=== PATIENT | male | born 1990 | race Caucasian/White ===

== ENCOUNTER 2018-02-18 20:55 | Inpatient (IN) ==
[2018-02-21] MEDS ORDERED: Divalproex 500 MG DR Tablet PO ONE (08:38)
[2018-02-21] MEDS ORDERED: Acetaminophen 325 MG Tablet PO PRN (09:09)
[2018-02-21] MEDS ORDERED: Aluminum/Magnesium/Simethacone Susp 30 ML UDC PO PRN (09:10)
[2018-02-21] MEDS ORDERED: LORazepam 1 MG Tablet PO PRN (09:15)
--- NOTE | 2018-02-21 15:21 | P.PNPSY ---
Subjective Remarks: Patient was seen and case discussed with nursing. Patient remains very irritable. "I feel manic." Patient says he has been having perseverant suicidal ideation. He had a plan with possible intent of hanging himself in the bathroom using a sheet. Nursing was made aware and a verbal order was given for 1-1 immediately. Mental Status Examination Appearance: Appropriate Consciousness: Alert Orientation: x4 Motor Activity: Normal gait Speech: Pressured Language: Adequate Fund of Knowledge: Adequate Attention and Concentration: Adequate Memory: Unremarkable Mood: Irritable Affect: Irritable, Sad Thought Process & Associations: Intact Thought Content: Appropriate Hallucination Type: None Delusion Type: None Suicidal Ideation: Yes Suicidal Plan: Yes (To hang himself) Suicidal Intention: Yes Homicidal Ideation: No Homicidal Plan: No Homicidal Intention: No Insight: Poor Judgment: Poor Assessment and Plan - Assessment (1) Bipolar disorder, current episode depressed, severe, without psychotic features Code(s): F31.4 - Bipolar disorder, current episode depressed, severe, without psychotic features Status: Acute - Plan Plan: Estimated LOS: [] days Order one-to-one Justification for Continued Inpatient Stay: Patient would decompensate in a less restrictive setting
[2018-02-21] MEDS: Divalproex 500 MG DR Tablet PO SCH (22:43)
[2018-02-22] MEDS: Divalproex 500 MG DR Tablet PO SCH ×2 (08:36→21:03)
--- NOTE | 2018-02-22 12:45 | P.PNPSY ---
Subjective Remarks: Patient seen and examined with nurse in coverage for Dr. Gandhi. Chart reviewed. Case discussed with nursing staff. Per nursing, patient was threatening to kill himself in the bathroom and so was placed on a one-to-one by Dr. Garland yesterday. Nursing staff has noted prominent antisocial personality traits. On my examination today, the patient reports that he has a history of bipolar disorder or perhaps borderline personality disorder. He says that he has pursued brief courses of inpatient treatment primarily in the past but has been poorly adherent with treatment recommendations after discharge. He says that he presented to outside hospital with psychiatric complaints but they rebuffed him and "I had to do this [i.e. overdose on Depakote] because they did not believe me." He further says that they "forced me to chew pills." I perceive prominent mixed cluster B (chiefly antisocial) personality traits. Some staff splitting noted. Patient complains of anxiety and racing thoughts. He denies any desire to injure himself on the inpatient unit at this time although he does endorse some ongoing vague suicidal ideation. He is requesting an as needed anxiolytic as well as additional medication for mood stabilization. No side effects from current medicines. No physical complaints. Review of Systems All other systems reviewed negative except as stated in HPI Mental Status Examination Appearance: Appropriate Consciousness: Alert Orientation: x4 Motor Activity: Other (No motor abnormalities noted. No ictal activity noted.) Speech: Unremarkable Language: Adequate Fund of Knowledge: Adequate Attention and Concentration: Adequate Memory: Unremarkable Mood: Anxious, Irritable Affect: Anxious Thought Process & Associations: Intact, Logical, Linear Thought Content: Appropriate Hallucination Type: None Delusion Type: None Suicidal Ideation: Yes Suicidal Plan: No Suicidal Intention: No Homicidal Ideation: No Homicidal Plan: No Homicidal Intention: No Insight: Fair Judgment: Impulsive Assessment and Plan - Assessment (1) Adjustment disorder with mixed disturbance of emotions and conduct Code(s): F43.25 - Adjustment disorder with mixed disturbance of emotions and conduct Status: Acute - Plan Plan: Extensive discussion with patient regarding pharmacotherapeutic options for current psychiatric complaints. We settle on addition of Zyprexa at bedtime. R /B/A for this medication discussed with patient. I have also highlighted that this medication can lower the seizure threshold. Add Zyprexa 5mg qHS. Check EKG for QTC [Update: QTc wnl]. Continue Depakote as ordered. Hospitalist input noted and appreciated. Continue one-to-one observation for now. Continue other medications and care as ordered. Justification for Continued Inpatient Stay: Medication changes. Risk for decompensation in less restrictive environment. Monitoring for impairment in safety. Discharge Planning: Pending psychiatric stabilization
[2018-02-23] MEDS: Divalproex 500 MG DR Tablet PO SCH ×2 (08:09→21:19)
--- NOTE | 2018-02-23 10:46 | ECG ---
Date Performed: 02/22/2018 Time Performed: 13:25:57 PTAGE: 28 years EKG: Sinus rhythm WITH SINUS ARRHYTHMIA NORMAL ECG NO PREVIOUS TRACING DOCTOR: Valentin Bautista Interpretating Date/Time 02/23/2018 10:44:42
--- NOTE | 2018-02-23 14:49 | P.PNPSY ---
Subjective Remarks: Patient seen and examined in coverage for Dr. Gadnhi. Chart reviewed. Case discussed with nursing staff. No behavioral issues noted overnight. Case discussed in treatment team. On my examination today, the patient continues to exhibit cluster B personality traits. He does admit that he is feeling less irritable, albeit a little tired from the addition of Zyprexa. Somewhat faultfinding. He feels like he needs to be placed in an assisted living facility so that his medication administration can be supervised as he notes this has been an issue for him in the past. Although he denies any active suicidal ideation, he continues to say "if I , it is okay." Besides some tiredness, no side effects from medications. No physical complaints. Refused vital signs this morning Labs reviewed. No new labs. Review of Systems All other systems reviewed negative except as stated in HPI Mental Status Examination Appearance: Appropriate Consciousness: Alert Orientation: x4 Motor Activity: Other (No abnormal motor movements noted. No ictal activity noted.) Speech: Unremarkable Language: Adequate Fund of Knowledge: Adequate Attention and Concentration: Adequate Memory: Unremarkable Mood: Other (Calmer, less irritable) Affect: Blunt Thought Process & Associations: Intact, Logical, Linear Thought Content: Appropriate Hallucination Type: None Delusion Type: None Suicidal Ideation: No Suicidal Plan: No Suicidal Intention: No Homicidal Ideation: No Homicidal Plan: No Homicidal Intention: No Insight: Fair Judgment: Impulsive Assessment and Plan - Assessment (1) Adjustment disorder with mixed disturbance of emotions and conduct Code(s): F43.25 - Adjustment disorder with mixed disturbance of emotions and conduct Status: Acute - Plan Plan: Continue Zyprexa as ordered. To consider further titrating the dose once patient acclimatizes to current dose. Continue one-to-one for safety overnight , although we might consider discontinuing this tomorrow. I have consulted the wedding planner regarding possible [facility] placement. Continue other medications and care as ordered. Justification for Continued Inpatient Stay: Monitoring for impairment in safety Discharge Planning: Possible placement
[2018-02-24] MEDS: Divalproex 500 MG DR Tablet PO SCH ×2 (09:32→20:14)
--- NOTE | 2018-02-24 12:48 | P.PNPSY ---
Subjective Remarks: Patient seen and mcleod with nurse Alyse, chart reviewed, patient compliant medications. Patient much calmer today states now that he is on medication he is feeling better. He acknowledges chronic suicidal ideation though he denies intent or plan or attempts. He acknowledges a difficult time showing cooperation and compliance. Would like to find a placement perhaps an [facility] where there would be some assistance. At this time I feel patient has improved to the point we can discontinue the one-to-one observation status and place him on close observation for any privileges. We will also attempt to transfer him to [facility] she may get more counseling and treatment Review of Systems All other systems reviewed negative except as stated in HPI Mental Status Examination Appearance: Appropriate Consciousness: Alert Orientation: x4 Motor Activity: Normal gait Speech: Unremarkable Language: Adequate Fund of Knowledge: Adequate Attention and Concentration: Adequate Memory: Unremarkable Mood: Other (Calmer less irritable) Affect: Blunt (Slight increased range and intensity) Thought Process & Associations: Intact, Logical Thought Content: Appropriate Hallucination Type: None Delusion Type: None Suicidal Ideation: No Suicidal Plan: No Suicidal Intention: No Homicidal Ideation: No Homicidal Plan: No Homicidal Intention: No Insight: Adequate Judgment: Adequate Assessment and Plan - Assessment (1) Adjustment disorder with mixed disturbance of emotions and conduct Code(s): F43.25 - Adjustment disorder with mixed disturbance of emotions and conduct Status: Acute - Plan Plan: Patient continues depressed and suicidal though improving. We will discontinue the one-to-one observations place him on close observation with privileges, we will also transfer the [facility] placement may become somewhat problematic Justification for Continued Inpatient Stay: At this time patient would decompensate a place to a lower level of care Discharge Planning: To be determined - Attending Attestation I have examined the patient and dictated the above adult
[2018-02-25] MEDS: Divalproex 500 MG DR Tablet PO SCH ×2 (10:16→20:02)
--- NOTE | 2018-02-25 16:01 | P.PNPSY ---
Subjective Remarks: In the mcleod with nurse Favian, patient continues calm cooperative but quite negative and pessimistic about finding an appropriate placement that would fulfill his needs. Though he does have insight into his own behaviors that have been up a component of his prior failures his critical verbalizations and inability to show some common sense in interpersonal relationships. Review of Systems All other systems reviewed negative except as stated in HPI Mental Status Examination Appearance: Appropriate Consciousness: Alert Orientation: x4 Motor Activity: Normal gait Speech: Unremarkable Language: Adequate Fund of Knowledge: Adequate Attention and Concentration: Adequate Memory: Unremarkable Mood: Other (Calmer less irritable) Affect: Blunt (Slight increased range and intensity) Thought Process & Associations: Intact, Logical Thought Content: Appropriate Hallucination Type: None Delusion Type: None Suicidal Ideation: No Suicidal Plan: No Suicidal Intention: No Homicidal Ideation: No Homicidal Plan: No Homicidal Intention: No Insight: Adequate Judgment: Adequate Assessment and Plan - Assessment (1) Adjustment disorder with mixed disturbance of emotions and conduct Code(s): F43.25 - Adjustment disorder with mixed disturbance of emotions and conduct Status: Acute - Plan Plan: Patient continues negative is vague suicidal ideation with no real intent or plan. Continues negative pessimistic about finding appropriate placement and referrals Justification for Continued Inpatient Stay: At this time patient would decompensate if not placed in an appropriate referral Discharge Planning: To be determined
[2018-02-26] MEDS: Divalproex 500 MG DR Tablet PO SCH ×2 (08:47→21:45)
--- NOTE | 2018-02-26 12:43 | P.PNPSY ---
Subjective Remarks: Patient seen and mcleod with floor staff, chart reviewed, patient compliant medications, patient discussed with nurse. It appears patient is adjusting well to the B unit, he is becoming somewhat more social participating in groups. Patient feels also like people here are respecting him in listening to him. He still remains suicidal and depressed though his affect is brightening. For now continue treatment no change continue to work an appropriate placement for this young man Review of Systems All other systems reviewed negative except as stated in HPI Mental Status Examination Appearance: Appropriate Consciousness: Alert Orientation: x4 Motor Activity: Normal gait Speech: Unremarkable Language: Adequate Fund of Knowledge: Adequate Attention and Concentration: Adequate Memory: Unremarkable Mood: Other (More tending towards euthymia still depressed) Affect: Other Thought Process & Associations: Intact, Logical Thought Content: Appropriate Hallucination Type: None Delusion Type: None Suicidal Ideation: No Suicidal Plan: No Suicidal Intention: No Homicidal Ideation: No Homicidal Plan: No Homicidal Intention: No Insight: Adequate Judgment: Adequate Assessment and Plan - Assessment (1) Adjustment disorder with mixed disturbance of emotions and conduct Code(s): F43.25 - Adjustment disorder with mixed disturbance of emotions and conduct Status: Acute - Plan Plan: Patient remains depressed with vague suicidal ideation though there is improvement in his mood and affect. He does have insight into his vulnerabilities if appropriate placements are not found to assist him Justification for Continued Inpatient Stay: At this time patient would decompensate if placed in a lower level of care Discharge Planning: To be determined
[2018-02-27] MEDS: Divalproex 500 MG DR Tablet PO SCH ×2 (08:42→20:25)
--- NOTE | 2018-02-27 15:13 | P.PNPSY ---
Subjective Remarks: Pt seen and discussed with staff. Pt has been compliant with medications and cooperative. No behavioral problems on unit. Continues to endorse vague suicidal ideation. He has been participating in therapeutic activities. Mental Status Examination Appearance: Appropriate Consciousness: Alert Orientation: x4 Motor Activity: Normal gait Speech: Unremarkable Language: Adequate Fund of Knowledge: Adequate Attention and Concentration: Adequate Memory: Unremarkable Mood: Other (More tending towards euthymia still depressed) Affect: Other Thought Process & Associations: Intact, Logical Thought Content: Appropriate Hallucination Type: None Delusion Type: None Suicidal Ideation: Yes (vague, no plan) Suicidal Plan: No Suicidal Intention: No Homicidal Ideation: No Homicidal Plan: No Homicidal Intention: No Insight: Adequate Judgment: Adequate Assessment and Plan - Assessment (1) Adjustment disorder with mixed disturbance of emotions and conduct Code(s): F43.25 - Adjustment disorder with mixed disturbance of emotions and conduct Status: Acute - Plan Plan: Continue current tx plan Justification for Continued Inpatient Stay: risk of decompensation, impairments in safety
[2018-02-28] MEDS: Divalproex 500 MG DR Tablet PO SCH ×2 (08:46→20:21)
--- NOTE | 2018-02-28 16:33 | P.PNPSY ---
Subjective Remarks: Pt seen and discussed with staff. He has been compliant with medications. He is negative and irritable on unit with intrusive behaviors. No SI/HI. Mental Status Examination Appearance: Appropriate Consciousness: Alert Orientation: x4 Motor Activity: Normal gait Speech: Unremarkable Language: Adequate Fund of Knowledge: Adequate Attention and Concentration: Adequate Memory: Unremarkable Mood: Other (More tending towards euthymia still depressed) Affect: Other Thought Process & Associations: Intact, Logical Thought Content: Appropriate Hallucination Type: None Delusion Type: None Suicidal Ideation: No Suicidal Plan: No Suicidal Intention: No Homicidal Ideation: No Homicidal Plan: No Homicidal Intention: No Insight: Adequate Judgment: Adequate Assessment and Plan - Assessment (1) Adjustment disorder with mixed disturbance of emotions and conduct Code(s): F43.25 - Adjustment disorder with mixed disturbance of emotions and conduct Status: Acute - Plan Plan: Continue current tx plan Justification for Continued Inpatient Stay: risk of decompensation
[2018-03-01] MEDS: Divalproex 500 MG DR Tablet PO SCH ×2 (08:28→21:23)
--- NOTE | 2018-03-01 13:53 | P.PNPSY ---
Subjective Remarks: Patient seen in his room with nurse Guy, chart reviewed, Dr. Arenas's note from yesterday shows patient denying suicidality homicidality also being somewhat intrusive and demanding and manipulative. Patient seen by me today he is calm with me continues the somewhat negative attitude about his ability to live independently. When asked about suicidality he again became somewhat vague saying wanting to just let me go and let me do what I need to do. The patient is some manipulation related to this. He seems to have a negative outlook towards any suggestions we have for him taking responsibility for behavior. He is otherwise eating and sleeping well socializing and is somewhat intimidating manner with more vulnerable females on the unit. Consider discharge 1-2 days Review of Systems All other systems reviewed negative except as stated in HPI Mental Status Examination Appearance: Appropriate Consciousness: Alert Orientation: x4 Motor Activity: Normal gait Speech: Unremarkable Language: Adequate Fund of Knowledge: Adequate Attention and Concentration: Adequate Memory: Unremarkable Mood: Other (More tending towards euthymia still depressed) Affect: Other Thought Process & Associations: Intact, Logical Thought Content: Appropriate Hallucination Type: None Delusion Type: None Suicidal Ideation: Yes (Patient making vague suicidal ideation statements, this seems to be a manipulative component to this) Suicidal Plan: No Suicidal Intention: No Homicidal Ideation: No Homicidal Plan: No Homicidal Intention: No Insight: Adequate Judgment: Adequate Assessment and Plan - Assessment (1) Adjustment disorder with mixed disturbance of emotions and conduct Code(s): F43.25 - Adjustment disorder with mixed disturbance of emotions and conduct Status: Acute - Plan Plan: Patient calm cooperative with me and giving some mixed statements to Dr. Arenas and myself and to staff. He appears to be enjoying his stay here eating and sleeping well socializing with some of the females on the unit though staff our of the impression that he is somewhat controlling and manipulative of them. Consider discharge 1-2 days Justification for Continued Inpatient Stay: At this time patient may decompensate a place to a lower level of care Discharge Planning: To be determined perhaps a homeless placement
[2018-03-02] MEDS: Divalproex 500 MG DR Tablet PO SCH (08:19)
--- NOTE | 2018-03-05 14:40 | P.DSPSY ---
Psychiatry Discharge Summary Inpatient Psychiatric care?: Yes Advance Directives: No Reason for Unknown:: Due to Patient Condition Mental Health Advance Directive: No Health Care Proxy: No - Admission Admission Date: February 18, 2018 20:55 - Admission Diagnosis (1) Adjustment disorder with mixed disturbance of emotions and conduct Code(s): F43.25 - Adjustment disorder with mixed disturbance of emotions and conduct Brief History: Please see initial psychiatric H&P dictated on 02/18 in the EMR in [facility] prior programming Tobacco Use In Past 30 Days: No How Often Do You Have a Drink Containing Alcohol: Monthly or less Hospital Course: Patient's hospital course was uneventful while he continued to claim suicidality that have been persistent for many years he showed good socialization on the unit. His intelligence was obvious. His ability to disrupt and manipulate other patients was also obvious. However after period of time it was noted that he went denies suicidality to some staff and acknowledge it to others. The treatment team felt there was a significant amount of manipulation with this. Perhaps reflective of the patient's life long involvement with the foster care system and then this extended period of time being homeless. In any event refill patient met maximum benefit of this hospitalization and he was [facility] 03[facility] and follow up with [facility] act - Discharge Discharge Date: 03/02/18 - Discharge Diagnosis (1) Adjustment disorder with mixed disturbance of emotions and conduct Code(s): F43.25 - Adjustment disorder with mixed disturbance of emotions and conduct Status: Acute Discharge Disposition: [facility] - Discharge Instructions Discharge Diet: Regular Diet Activities You Can Perform: Regular- No Restrictions - Discharge Time > 30 minutes Mental Status Examination Appearance: Appropriate Consciousness: Alert Orientation: x4 Motor Activity: Normal gait Speech: Unremarkable Language: Adequate Fund of Knowledge: Adequate Attention and Concentration: Adequate Memory: Unremarkable Mood: Other (More tending towards euthymia still depressed) Affect: Other Thought Process & Associations: Intact, Logical Thought Content: Appropriate Hallucination Type: None Delusion Type: None Suicidal Ideation: Yes (Patient making vague suicidal ideation statements, this seems to be a manipulative component to this) Suicidal Plan: No Suicidal Intention: No Homicidal Ideation: No Homicidal Plan: No Homicidal Intention: No Insight: Adequate Judgment: Adequate Discharge/Advance Care Plan - Results Vital Signs: Last Vital Signs Temp 97.7 F 03/02/18 05:25 Pulse 63 03/02/18 05:25 Resp 16 03/02/18 05:25 BP 103/56 L 03/02/18 05:25 Pulse Ox 95 03/02/18 05:25 Lab Results: Laboratory Results Hemoglobin A1c 4.8 % (4.3-6.0) 02/19/18 09:50 Triglycerides 113 MG/DL (42-150) 02/19/18 09:50 Cholesterol 75 MG/DL (120-200) L 02/19/18 09:50 HDL Cholesterol 34.2 MG/DL (40.0-60.0) L 02/19/18 09:50 Valproic Acid 71 mcg/mL (50-100) 02/22/18 07:00 Summary of Procedures: None done Pending Results: None - Medications Number of antipsychotic medications at discharge: 0 - Discharge Care Plan Goals to Promote Your Health: * To prevent worsening of your condition and complications * To maintain your health at the optimal level Directions to Meet Your Goals: Take your medications as prescribed Follow your dietary instruction Follow activity as directed Keep your appointments as scheduled Take your immunizations and boosters as scheduled If your symptoms worsen call your PCP, if no PCP go to Urgent Care Center or Emergency Room For 16/03 questions related to your inpatient stay or results of tests pending at discharge, please contact Dr. Dipak Gandhi MD at Smoking is Dangerous to Your Health. Avoid second hand smoking
== END 2018-03-02 12:40 | disposition home or self-care (01) ==
LOC: H270 20:55 → H260 02-25 17:43
PROVIDERS: ADMIT Psychiatry & Neurology Psychiatry; ATTEND Psychiatry & Neurology Psychiatry

== ENCOUNTER 2018-03-02 19:27 | Inpatient (IN) ==
--- NOTE | 2018-03-02 20:03 | ED ---
HPI General Chief complaint: Psychiatric Symptoms Stated complaint: Psych eval/[place] pd Time Seen by Provider: 03/02/18 19:57 History of Present Illness HPI narrative: 28-year-old male presents under Dey act. The patient reports that he took 20-25 tablets of 500 mg Depakote at approximately 2 PM today and effort to kill himself. He denies any other toxic ingestions. In regards to symptoms he reports that he currently feels "numb" but is otherwise asymptomatic. Suicidal ideation ist the chief complaint, symptom onset unknown , no obvious aggravating or alleviating factors. He has no other complaints at this time. Related Data Previous Rx's Medication Instructions Recorded divalproex [Depakote] 500 mg PO BID #30 tab 03/02/18 Allergies Allergy/AdvReac Type Severity Reaction Status Date / Time No Known Allergies Allergy Verified 03/02/18 14:08 Review of Systems ROS Unobtainable All other systems reviewed negative except as stated [facility] Social History Social History Substance History: No History of Abuse Second Hand Smoke Exposure: No Smoking Status: Current every day smoker Tobacco Type: Cigarettes How Often Do You Have a Drink Containing Alcohol: Monthly or less Recent Travel in [place] within the Last 8 Weeks: No Recent Out of Country Travel within the Last 8 Weeks: No Immunization History Tetanus Immunization Year if Known: 2018 Exam Narrative Exam Narrative: GENERAL: Well-developed well-nourished male in no acute distress SKIN: Warm and dry. HEAD: Atraumatic. Normocephalic. EYES: Pupils equal and round. No scleral icterus. No injection or drainage. ENT: No nasal bleeding or discharge. Mucous membranes pink and moist. NECK: Trachea midline. No JVD. CARDIOVASCULAR: Regular rate and rhythm. No murmur appreciated. RESPIRATORY: No accessory muscle use. Clear to auscultation. Breath sounds equal bilaterally. GASTROINTESTINAL: Abdomen soft, non-tender, nondistended. Hepatic and splenic margins not palpable. MUSCULOSKELETAL: No obvious deformities. No clubbing. No cyanosis. No edema. NEUROLOGICAL: Awake and alert. No obvious cranial nerve deficits. Motor grossly within normal limits. Normal speech. PSYCHIATRIC: Depressed mood. Course Initial Documented Vital Signs Temperature 99.1 F 03/02/18 19:52 Pulse Rate 130 H 03/02/18 19:52 Respiratory Rate 12 03/02/18 19:52 Blood Pressure 126/81 03/02/18 19:52 Pulse Oximetry 96 03/02/18 19:52 Last Documented Vital Signs Temperature 99.1 F 03/02/18 19:52 Pulse Rate 114 H 03/02/18 23:00 Respiratory Rate 18 03/02/18 23:00 Blood Pressure 89/53 L 03/02/18 23:00 Pulse Oximetry 95 03/02/18 23:00 Medical Decision Making THERESA Attestation THERESA supervised visit: Yes Attestation: I, Dr. Correa, have reviewed the advance practice practitioner's documentation and am in agreement, met with the patient face to face, made the diagnosis, and the medical decision making was done by me. *My assessment and Findings: Patient is a 28 year old male who comes in saying he took several of his Depakote. He is awake and alert on initial exam. He did become agitated and had to be restrained for safety. Valproic level is elevated. Poison control advised repeating level in 4 hours. MDM Narrative Medical decision making narrative: The patient was placed on ECG monitoring pulse oximetry. 12 EKG was obtained revealing sinus tachycardia with a rate of 107, normal axis, qtc 395. . Lab work has been ordered. Valproic acid level is elevated at 311. The nurse discussed with poison control who advised repeating the level in 4 hours and if trending up and he should be admitted, trending down and he can medically cleared. The patient did become increasingly agitated and had to be restrained. 0100: The patient's repeat valproic acid has trended down to 261. The patient has been stable during his hospital stay. He is medically cleared. A sitter is present in his room. Differential Diagnosis Differential Diagnosis: Intentional overdose, acute psychosis, adjustment reaction, major depressive disorder, bipolar disorder Lab Data Result diagrams: 03/02/18 19:53 03/02/18 19:53 Lab Results 03/02/18 03/02/18 03/02/18 Range/Units 19:53 19:53 19:53 WBC 11.1 H (4.0-11.0) th/mm3 RBC 5.53 (4.50-5.90) mil/mm3 Hgb 15.7 (13.0-17.0) gm/dL Hct 47.0 (39.0-51.0) % MCV 84.9 (80.0-100.0) fL MCH 28.4 (27.0-34.0) pg MCHC 33.4 (32.0-36.0) % RDW 13.8 (11.6-17.2) % Plt Count 260 (150-450) th/mm3 MPV 7.4 (7.0-11.0) fL Neut % (Auto) 74.8 H (16.0-70.0) % Lymph % (Auto) 18.3 (9.0-44.0) % Sharkey % (Auto) 5.0 (0.0-8.0) % Eos % (Auto) 1.3 (0.0-4.0) % Baso % (Auto) 0.6 (0.0-2.0) % Neut # (Auto) 8.3 H (1.8-7.7) th/mm3 Lymph # (Auto) 2.0 (1.0-4.8) th/mm3 Sharkey # (Auto) 0.6 (0.0-0.9) th/mm3 Eos # (Auto) 0.1 (0.0-0.4) th/mm3 Baso # (Auto) 0.1 (0.0-0.2) th/mm3 WBC Differential . Differential Comment Auto diff final Sodium 144 (136-145) meq/L Potassium 4.4 (3.5-5.1) meq/L Chloride 111 H (98-107) meq/L Carbon Dioxide 22.4 (21.0-32.0) meq/L Anion Gap 11 (5-15) meq/L BUN 12 (7-18) mg/dL Creatinine 1.15 (0.60-1.30) mg/dL Estimated GFR 75 L (>89) mL/min POC Glucose (68-110) mg/dl Random Glucose 84 (74-106) mg/dL Calcium 9.7 (8.5-10.1) mg/dL Magnesium 2.2 (1.5-2.5) mg/dL Total Bilirubin 0.4 (0.2-1.0) mg/dL AST 24 (15-37) U/L ALT 50 (12-78) U/L Alkaline Phosphatase 107 (45-117) U/L Ammonia (11-32) mcmol/L Total Protein 7.6 (6.4-8.2) g/dL Albumin 3.6 (3.4-5.0) g/dL Salicylates 2.4 L (2.8-20.0) mg/dL Acetaminophen Less than 2.0 L (10.0-30.0) mcg/mL Valproic Acid 311 H* (50-100) mcg/mL 03/02/18 03/02/18 03/02/18 Range/Units 21:44 22:56 23:45 WBC (4.0-11.0) th/mm3 RBC (4.50-5.90) mil/mm3 Hgb (13.0-17.0) gm/dL Hct (39.0-51.0) % MCV (80.0-100.0) fL MCH (27.0-34.0) pg MCHC (32.0-36.0) % RDW (11.6-17.2) % Plt Count (150-450) th/mm3 MPV (7.0-11.0) fL Neut % (Auto) (16.0-70.0) % Lymph % (Auto) (9.0-44.0) % Sharkey % (Auto) (0.0-8.0) % Eos % (Auto) (0.0-4.0) % Baso % (Auto) (0.0-2.0) % Neut # (Auto) (1.8-7.7) th/mm3 Lymph # (Auto) (1.0-4.8) th/mm3 Sharkey # (Auto) (0.0-0.9) th/mm3 Eos # (Auto) (0.0-0.4) th/mm3 Baso # (Auto) (0.0-0.2) th/mm3 WBC Differential Differential Comment Sodium (136-145) meq/L Potassium (3.5-5.1) meq/L Chloride (98-107) meq/L Carbon Dioxide (21.0-32.0) meq/L Anion Gap (5-15) meq/L BUN (7-18) mg/dL Creatinine (0.60-1.30) mg/dL Estimated GFR (>89) mL/min POC Glucose 82 (68-110) mg/dl Random Glucose (74-106) mg/dL Calcium (8.5-10.1) mg/dL Magnesium (1.5-2.5) mg/dL Total Bilirubin (0.2-1.0) mg/dL AST (15-37) U/L ALT (12-78) U/L Alkaline Phosphatase (45-117) U/L Ammonia 52 H (11-32) mcmol/L Total Protein (6.4-8.2) g/dL Albumin (3.4-5.0) g/dL Salicylates (2.8-20.0) mg/dL Acetaminophen (10.0-30.0) mcg/mL Valproic Acid 261 H* (50-100) mcg/mL Discharge Plan Discharge Disposition Patient Disposition: 30 Still Patient Discharge Condition Condition: Stable Discharge Details Diagnosis: Medical clearance for psychiatric admission, Medication overdose Physicians Team ED Provider: Temi Correa ED Midlevel Provider: Donta Guadarrama Primary Care Provider: Primary Care Tami Eric Rxs /Orders / Referrals /Forms Prescriptions: No Action divalproex [Depakote] 500 mg Tablet,Delayed Release (Dr/Ec) 500 mg PO BID Qty: 30 RF: 0 Discharge Interventions Interventions: Vital Signs Last Done: 03/02/18 23:00 Status ED Status: Medically Cleared
[2018-03-02 20:12] LABS: Baso # (Auto) 0.1 th/mm3 (0.0-0.2); Baso % (Auto) 0.6 % (0.0-2.0); Eos # (Auto) 0.1 th/mm3 (0.0-0.4); Eos % (Auto) 1.3 % (0.0-4.0); Hemoglobin 15.7 gm/dL (13.0-17.0); Lymph % (Auto) 18.3 % (9.0-44.0); Mean Corpuscular HGB Conc 33.4 % (32.0-36.0); Mean Corpuscular Hemoglobin 28.4 pg (27.0-34.0); Mean Corpuscular Volume 84.9 fL (80.0-100.0); Mean Platelet Volume 7.4 fL (7.0-11.0); Mono # (Auto) 0.6 th/mm3 (0.0-0.9); Neut # (Auto) 8.3 th/mm3 (1.8-7.7); Neut % (Auto) 74.8 % (16.0-70.0); Platelet Count 260 th/mm3 (150-450); Red Blood Count 5.53 mil/mm3 (4.50-5.90); Red Cell Distribution Width 13.8 % (11.6-17.2); White Blood Count 11.1 th/mm3 (4.0-11.0)
[2018-03-02 20:27] LABS: Albumin 3.6 g/dL (3.4-5.0); Anion Gap 11 meq/L (5-15); Aspartate Aminotransferase 24 U/L (15-37); Blood Urea Nitrogen 12 mg/dL (7-18); Calcium 9.7 mg/dL (8.5-10.1); Carbon Dioxide 22.4 meq/L (21.0-32.0); Chloride 111 meq/L (98-107); Glomerular Filtration Rate 75 mL/min (>89); Glucose,Random 84 mg/dL (74-106); Magnesium 2.2 mg/dL (1.5-2.5); Potassium 4.4 meq/L (3.5-5.1); Sodium 144 meq/L (136-145)
[2018-03-02 20:28] LABS: Alanine Aminotransferase 50 U/L (12-78)
[2018-03-02 20:32] LABS: Alkaline Phosphatase 107 U/L (45-117); Total Protein 7.6 g/dL (6.4-8.2)
[2018-03-02 21:04] LABS: Valproic Acid 311 mcg/mL (50-100)
[2018-03-02] MEDS ORDERED: Sod Chloride 0.9% Inj 1,000 ML IV.SIG ONE (21:46)
[2018-03-02] MEDS ORDERED: Naloxone Inj 0.4 MG/ML Vial IV.PUSH ONE (21:46)
[2018-03-03] MEDS ORDERED: Sod Chloride 0.9% Inj 1,000 ML IV.SIG ONE (00:48)
--- NOTE | 2018-03-03 05:36 | ECG ---
Date Performed: 03/02/2018 Time Performed: 20:32:16 PTAGE: 28 years EKG: SINUS TACHYCARDIA ABNORMAL RHYTHM ECG Compared to prior electrocardiogram, rate has increas ed DOCTOR: Jerome Wesley Interpretating Date/Time 03/03/2018 05:35:29
[2018-03-03] MEDS ORDERED: Aluminum/Magnesium/Simethacone Susp 30 ML UDC PO PRN (09:43)
[2018-03-03] MEDS ORDERED: Bisacodyl 10 MG Supp RECTAL PRN (09:43)
--- NOTE | 2018-03-03 12:36 | P.HPPSY ---
Provisional Diagnosis Admission Date: March 03, 2018 09:43 Lyman I.: Adjustment disorder with disturbance of conduct, history of bipolar disorder, R/ o conscious simulation with secondary gain of use in the hospital as a retirement Lyman II.: Antisocial personality disorder Lyman III.: No significant medical history Competence Certification of Person's Competence To Provide Express and Informed Consent I have personally examined Darion Cruz, a person being served at [facility] on, March 03, 2018 1154. Express and informed consent means consent voluntarily given in writing, by a competent person, after sufficient explanation and disclosure of the subject matter involved to enable the person to make a knowing and willful decision without any element of force, fraud, deceit, duress, or other form of constraint or coercion. This person is 18 years of age or older, is not now known to be incompetent to consent to treatment with a guardian advocate, and does not have a health care surrogate or proxy currently making medical treatment decisions. I have found this person to be one of the following: [] Competent to provide express and informed consent, as defined above, for voluntary admission to this facility and is competent to provide express and informed consent for treatment. He/she has the consistent capacity to make well reasoned, willful, and knowing decisions concerning his or her medical or mental health treatment. The person fully and consistently understands the purpose of the admission for examination/placement and is fully capable of personally exercising all rights assured [place] [] Incompetent to provide express and informed consent to voluntary admission, and this is incompetent to provide express and informed consent to treatment. The person must be transferred to involuntary status and a petition for a guardian advocate filed with the Circuit Court. [x] Refusing to provide express and informed consent to voluntary admission but is competent to provide express and informed consent for treatment. The person must be discharged or transferred to involuntary status. Form shall be completed within 24 hours of a person's arrival at the receiving facility and filed in the clinical record of each person: 1. Admitted on a voluntary basis 2. Permitted to provide express and informed consent to his/her own treatment 3. Allowed to transfer from involuntary to voluntary status 4. Prior to permitting a person to consent to his or her own treatment after having been previously found incompetent to consent to treatment. History of Present Illness Capacity: Has capacity History of Present Illness: The patient is a 28-year-old man, homeless, , unemployed, with a self-reported psychiatric history of bipolar disorder, borderline personality disorder, he reports 3 previous psychiatric hospitalizations, multiple suicidal attempts, history of self cutting behavior without SI, poor impulse control, noncompliant with medications, aggressive behavior, multiple incarcerations, who was just discharged today by Dr. Gandhi with clear recommendations, but presented hour late presents under Dey act. The patient reports that he took 20-25 tablets of 500 mg Depakote at approximately 2 PM yesterday and effort to kill himself. His Depakote level initially was 311. Apparently after the patient was discharged from psychiatry he overdosed with the Depakote and went up to 1 of the towers of [place] and from there called 911 stating that he wanted to kill himself. EMR was reviewed. Case was discussed with ER staff. I find a patient that is a sleeping, but arousable. He wake up and he states that he is feeling fine but he does not open his eyes, when I asked him to open his eyes so he can have a better conversation with me and he can recognize his psychiatrist, his answer is "I am not opening my fucking eyes and I do not need to see a motherf.... psychiatrist". The patient is visibly quite irritable, oppositional and avoidant. As I try to engage in the conversation and asking the reason he overdose and he came back to the hospital, he says that he has been suicidal for about 2 years now, he is tired of his life and tired of being homeless. He reports that yesterday when he was discharged "I felt that I was not ready to be homeless again and I just tried to commit suicide". The patient refused to elaborate about feelings and emotions behind his suicidal behavior. As I continued asking questions to the patient's continue to be avoidant and using several profanities and disrespectful statements. He is fully oriented x3, denies the use of illegal drugs and alcohol. - Inpatient Certification I certify that the inpatient services were ordered in accordance with Medicare regulations governing the order. This includes certification that hospital inpatient services are reasonable and necessary and in the case of services not specified as inpatient-only under 42 CFR 419.22(n), that they are appropriately provided as inpatient services in accordance to with the 2-midnight benchmark under 43 CFR 412.3(e) I certify that inpatient psychiatric hospital services are medically necessary. Evaluation and treatment and/or diagnostic testing are expected to improve the patient's condition. The patient needs on a daily basis, active treatment furnished directly by or requiring the supervision of inpatient psychiatric facility personnel. Estimated Total Length of Stay (Days): 5 Plans for Post Hospital Care: Home Review of Systems Constitutional: Denies anorexia, Denies body ache(s), Denies chills, Denies daytime sleepiness, Denies excessive sweating, Denies fatigue, Denies fever(s), Denies headache(s), Denies increased appetite, Denies lack of energy, Denies malaise, Denies night sweats, Denies weakness, Denies weight gain, Denies weight loss, Denies other Cardiovascular: Denies chest pain, Denies chest pain at rest, Denies chest pain with activity, Denies excessive sweating, Denies fainting, Denies fast heart rate, Denies foot swelling, Denies generalized swelling, Denies irregular heart rhythm, Denies leg pain with activity, Denies leg sores, Denies leg swelling, Denies lightheadedness, Denies radiating jaw, neck or arm pain, Denies rapid, pounding, or irregular heartbeat, Denies shortness of breath, Denies shortness of breath with activity, Denies shortness of breath when lying down, Denies shortness of breath causing sudden awakening, Denies slow heart rate, Denies other Respiratory: Denies change in phlegm color, Denies chest congestion, Denies cough, Denies coughing up blood, Denies excessive phlegm production, Denies pain on inspiration, Denies pain with cough, Denies shortness of breath, Denies shortness of breath with activity, Denies snoring, Denies stridor, Denies wheezing, Denies other Genitourinary: Denies blood in semen, Denies blood in urine, Denies decreased urination, Denies difficulty urinating, Denies difficulty with ejaculations, Denies erectile dysfunction, Denies genital lesions, Denies genital pain, Denies painful urination, Denies side pain, Denies frequent nighttime urination , Denies painful ejaculations, Denies penile discharge, Denies scrotal swelling , Denies testicle lump, Denies testicle pain, Denies urinary frequency, Denies urinary hesitancy, Denies urinary incontinence, Denies urinary urgency, Denies other Musculoskeletal: Denies abnormal walking, Denies back pain, Denies body aches, Denies decreased muscle mass, Denies deformity, Denies joint pain, Denies joint swelling, Denies limited joint movement, Denies loss of height, Denies muscle cramps, Denies muscle weakness, Denies neck pain, Denies numbness, Denies radiating pain into limb, Denies stiffness, Denies tingling, Denies other Neurologic: Denies abnormal hearing, Denies abnormal movements, Denies abnormal speech, Denies abnormal walking, Denies behavioral changes, Denies burning sensations, Denies confusion, Denies dizziness, Denies fainting, Denies frequent falls, Denies headache(s), Denies lack of coordination, Denies localized weakness, Denies loss of vision, Denies memory loss, Denies numbness, Denies other visual disturbances, Denies radiating pain, Denies restless legs, Denies convulsions, Denies seizure-like activity, Denies sensory deficit, Denies tingling, Denies tingling/numbness/burning sensations, Denies tremor(s), Denies unsteadiness, Denies weakness, Denies other Psychiatric: Reports depression, Reports irritability, Reports thoughts of hurting/killing yourself PMFSH - History History Provided By: Patient - Medical History Medical History: Medical History (Last Reviewed 03/02/18 @ 20:36 by Gladys Birmingham) Depression Seizure - Tobacco History Second Hand Smoke Exposure: No Tobacco Use In Past 30 Days: Yes Smoking Status: Current every day smoker Tobacco Type: Cigarettes - Alcohol History How Often Do You Have a Drink Containing Alcohol: Monthly or less - Substance Use History Substance History: No History of Abuse - Travel History Recent Travel in the [place] Within the Last 8 Weeks: No Recent Travel Out of the Country Within the Last 8 Weeks: No - Immunization History Tetanus Immunization: Unsure Tetanus Immunization Year if Known: 2017 Hx Influenza Vaccine This Season: No Medications and Allergies Active Medications: Active Medications Al Hydrox/Mg Hydrox/Simethicone (Mag-Al Plus Susp Liq) 30 ml PO Q6H PRN PRN Reason: DYSPEPSIA Al Hydroxide/Mg Hydroxide (Milk Of Magnesia Liq) 30 ml PO Q12H PRN PRN Reason: Mild Constipation Bisacodyl (Dulcolax Supp) 10 mg RECTAL DAILY PRN PRN Reason: SEVERE CONSITIPATION Lactulose (Lactulose Liq) 30 ml PO DAILY PRN PRN Reason: SEVERE CONSITIPATION Senna/Docusate Sodium (Bev-Colace) 1 tab PO BID YVONNE Sennosides (Senokot) 17.2 mg PO Q12H PRN PRN Reason: Moderate Constipation Allergies Allergy/AdvReac Type Severity Reaction Status Date / Time No Known Allergies Allergy Verified 03/02/18 14:08 Results - Labs CBC & Chem 7: 03/02/18 19:53 03/02/18 19:53 Labs: Laboratory Results - last 24 hr 03/02/18 03/02/18 03/02/18 19:53 19:53 19:53 WBC 11.1 H RBC 5.53 Hgb 15.7 Hct 47.0 MCV 84.9 MCH 28.4 MCHC 33.4 RDW 13.8 Plt Count 260 MPV 7.4 Neut % (Auto) 74.8 H Lymph % (Auto) 18.3 [place] % (Auto) 5.0 Eos % (Auto) 1.3 Baso % (Auto) 0.6 Neut # (Auto) 8.3 H Lymph # (Auto) 2.0 [place] # (Auto) 0.6 Eos # (Auto) 0.1 Baso # (Auto) 0.1 WBC Differential . Differential Comment Auto diff final Sodium 144 Potassium 4.4 Chloride 111 H Carbon Dioxide 22.4 Anion Gap 11 BUN 12 Creatinine 1.15 Estimated GFR 75 L POC Glucose Random Glucose 84 Calcium 9.7 Magnesium 2.2 Total Bilirubin 0.4 AST 24 ALT 50 Alkaline Phosphatase 107 Ammonia Total Protein 7.6 Albumin 3.6 Salicylates 2.4 L Acetaminophen Less than 2.0 L Valproic Acid 311 H* 03/02/18 03/02/18 03/02/18 21:44 22:56 23:45 WBC RBC Hgb Hct MCV MCH MCHC RDW Plt Count MPV Neut % (Auto) Lymph % (Auto) [place] % (Auto) Eos % (Auto) Baso % (Auto) Neut # (Auto) Lymph # (Auto) [place] # (Auto) Eos # (Auto) Baso # (Auto) WBC Differential Differential Comment Sodium Potassium Chloride Carbon Dioxide Anion Gap BUN Creatinine Estimated GFR POC Glucose 82 Random Glucose Calcium Magnesium Total Bilirubin AST ALT Alkaline Phosphatase Ammonia 52 H Total Protein Albumin Salicylates Acetaminophen Valproic Acid 261 H* Exam Vital signs: Vital Signs 03/02/18 19:52 03/02/18 20:35 03/02/18 21:11 Temperature 99.1 F Pulse Rate 130 H 104 H 115 H Respiratory Rate 12 20 20 Blood Pressure 126/81 138/70 114/63 Pulse Oximetry 96 99 96 03/02/18 22:01 03/02/18 23:00 03/03/18 00:00 Temperature Pulse Rate 127 H 114 H 112 H Respiratory Rate 18 18 16 Blood Pressure 108/53 L 89/53 L 95/54 L Pulse Oximetry 99 95 94 L 03/03/18 01:00 03/03/18 02:00 03/03/18 03:00 Temperature Pulse Rate 92 H 90 90 Respiratory Rate 16 16 15 Blood Pressure 91/50 L 95/52 L 99/58 L Pulse Oximetry 94 L 94 L 90 L 03/03/18 04:00 03/03/18 05:00 03/03/18 07:00 Temperature Pulse Rate 80 76 84 Respiratory Rate 16 14 17 Blood Pressure 102/55 L 95/50 L 108/55 L Pulse Oximetry 97 97 98 Intake & Output 03/02/18 03/03/18 03/03/18 18:59 06:59 18:59 Weight 98.883 kg Narrative: No psychomotor retardation or agitation, no withdrawal, no tremors, no EPS, no gait disturbance - Constitutional no acute distress - Routine HEENT Exam Head: Present: normocephalic Mental Status Examination Appearance: Appropriate Consciousness: Alert Orientation: x4 Motor Activity: Normal gait Speech: Unremarkable Language: Adequate Fund of Knowledge: Adequate Attention and Concentration: Adequate Memory: Unremarkable Mood: Irritable Affect: Irritable Thought Process & Associations: Intact Thought Content: Appropriate Hallucination Type: None Delusion Type: None Suicidal Ideation: Yes Suicidal Plan: Yes Suicidal Intention: Yes Homicidal Ideation: No Homicidal Plan: No Homicidal Intention: No Insight: Poor Judgment: Poor Assessment and Plan - Assessment (1) Adjustment disorder with mixed disturbance of emotions and conduct Code(s): F43.25 - Adjustment disorder with mixed disturbance of emotions and conduct Status: Acute - Plan Plan: On my psychiatric evaluation today I find a patient that is quite irritable, oppositional and avoidant. Throughout all my interview the patient does not open his eyes on single second. During the evaluation the patient also uses multiple profanities and disrespectful statements toward nurses, ER staff and me , and shows himself quite entitle and arrogant which is inconsistent with a person that reports depression and suicidal thoughts. He reports that he has been having suicidal ideation since he was a kid, he reports being suicidal for the last 2 years. He also reports depressive symptoms in the context of homelessness, recent divorce and economical problems. This is a patient with self-reported bipolar disorder, borderline personality disorder, multiple psychiatric hospitalizations, multiple suicidal attempts, self cutting behavior without SI, history of aggressive behavior, incarcerations, poor compliant with medications who was just discharged today from psychiatry by Dr. Gandhi. I have reviewed the documentation during his last hospitalizations and there are several reported antisocial and manipulative behavior in the unit. After being discharged by Dr. Gandhi he overdose with a number of Depakote went up to one of the towers in [place] and called 911 from there which clearly shows that the patient has more intentions to manipulate the system then committed suicide. Given the elevated risk of danger that the patient represents at the moment and going to readmit him in psychiatry for stabilization and to try to coordinate safe discharge. But, it is important to clarify that, on my professional, based in my interview and in the documentation review, as well as testimony of the staff, this patient has an antisocial personality disorder and is quite clear that the patient is using the system with conscious simulation/purpose with a secondary gain. I have not recommending any psychotropic at the moment. chute worker intervention for psychosocial assessment and to try to get collateral information, also to try to coordinate safe for discharge. I will consult psychiatry for second opinion in this case. Justification for Continued Inpatient Stay: The patient will be admitted in psychiatry for longitudinal observation of mood and behavior
[2018-03-03] MEDS: Senna/Docusate Sodium 8.6/50 MG Tablet PO SCH (21:19)
[2018-03-04] MEDS: Senna/Docusate Sodium 8.6/50 MG Tablet PO SCH ×2 (08:56→23:37)
[2018-03-04] MEDS ORDERED: Aluminum/Magnesium/Simethacone Susp 30 ML UDC PO PRN (12:44)
[2018-03-04] MEDS ORDERED: Bisacodyl 10 MG Supp RECTAL PRN (12:44)
--- NOTE | 2018-03-04 12:57 | P.PNPSY ---
Subjective Remarks: Patient initially admitted by Dr. Frank's H&P reviewed and agreed with. I have finished the initial psychiatric template orders. Chart reviewed. Patient compliant with medication. Patient seen by me in unit continues very demanding and manipulative patient is stating his symptoms he got the cabin went towards counseling of [facility] found out that they were close he decided it was time to end his life again Liz thinking back here was screened in the ED and released then made his way 1 of the [facility] this hospitalization he continues to demand services and perhaps some type program but shows no responsibility for his own behaviors showing no acceptance of responsibility for his behaviors. At this time we will refrain from his many psychotropic medications is possible. Because this patient's high risk factor for now will keep him on 2700. We will attempt to somewhat of a drug washout with. Patient continues to make statements that if he were discharged she would kill himself. I feel these are still manipulative in nature the need to be cautious in our statements Review of Systems All other systems reviewed negative except as stated in HPI Mental Status Examination Appearance: Appropriate Consciousness: Alert Orientation: x4 Motor Activity: Normal gait Speech: Unremarkable Language: Adequate Fund of Knowledge: Adequate Attention and Concentration: Adequate Memory: Unremarkable Mood: Irritable Affect: Irritable Thought Process & Associations: Intact Thought Content: Appropriate Hallucination Type: None Delusion Type: None Suicidal Ideation: Yes Suicidal Plan: Yes Suicidal Intention: Yes Homicidal Ideation: No Homicidal Plan: No Homicidal Intention: No Insight: Poor Judgment: Poor Assessment and Plan - Assessment (1) Adjustment disorder with mixed disturbance of emotions and conduct Code(s): F43.25 - Adjustment disorder with mixed disturbance of emotions and conduct Status: Acute - Plan Plan: At this time patient meets criteria for continued involuntary psychiatric hospitalization of the Dey act thus I will cosign second opinion petition supporting Dey act initiated by Dr. Frank Justification for Continued Inpatient Stay: At this time patient would decompensate if placed in a lower level of care Discharge Planning: To be determined
[2018-03-05 12:06] LABS: Anion Gap 7 meq/L (5-15); Blood Urea Nitrogen 11 mg/dL (7-18); Calcium 9.1 mg/dL (8.5-10.1); Carbon Dioxide 27.6 meq/L (21.0-32.0); Chloride 109 meq/L (98-107); Cholesterol 85 mg/dL (120-200); Glomerular Filtration Rate Greater Than 89 mL/min (>89); Glucose,Random 99 mg/dL (74-106); Potassium 4.1 meq/L (3.5-5.1); Sodium 144 meq/L (136-145)
[2018-03-05 12:10] LABS: Chol/HDL Ratio 2.63 Ratio; HDL Cholesterol 32.3 mg/dL (40.0-60.0); LDL Cholesterol,Calculated 30 mg/dL (0-99); Triglycerides 115 mg/dL (42-150)
[2018-03-05] MEDS: Senna/Docusate Sodium 8.6/50 MG Tablet PO SCH (12:47)
--- NOTE | 2018-03-05 14:15 | P.PNPSY ---
Subjective Remarks: Patient seen and unit with nurse Alyse, chart reviewed, patient compliant medication. It appears patient has been manipulating of the milieu to "stir the pot" antagonize or irritate and generally being a gadfly to the community. Though he has not been physically aggressive. I confronted patient with his manipulative behaviors he acknowledged them. When I shared with him his need to accept responsibility and consequences such as being placed in the short haul for the safety of the milieu D stated he would back off of these behaviors. These behaviors are in my opinion reflection of his past experiences with the "system" going back to a small child. There appears to be a not get of young depressed and angry scared little boy in this man. Though how to get at it and how to treat it is quite difficult. I feel her medications are not the total answer. For now we will continue to work with him Review of Systems All other systems reviewed negative except as stated in HPI Mental Status Examination Appearance: Appropriate Consciousness: Alert Orientation: x4 Motor Activity: Normal gait Speech: Unremarkable Language: Adequate Fund of Knowledge: Adequate Attention and Concentration: Adequate Memory: Unremarkable Mood: Angry, Irritable Affect: Other (Slight decreased range and intensity) Thought Process & Associations: Intact Thought Content: Appropriate Hallucination Type: None Delusion Type: None Suicidal Ideation: Yes Suicidal Plan: Yes Suicidal Intention: Yes Homicidal Ideation: No Homicidal Plan: No Homicidal Intention: No Insight: Poor Judgment: Poor Assessment and Plan - Assessment (1) Adjustment disorder with mixed disturbance of emotions and conduct Code(s): F43.25 - Adjustment disorder with mixed disturbance of emotions and conduct Status: Acute - Plan Plan: Patient continues to attempt to control the milieu. It appears to be reactive to the community. He shows little insight into this. But he is able to process our discussion to some degree. He acknowledges continued suicidality. For now continue treatment Justification for Continued Inpatient Stay: At this time patient would decompensate if placed in a lower level of care Discharge Planning: To be determined
[2018-03-06] MEDS: Senna/Docusate Sodium 8.6/50 MG Tablet PO SCH ×3 (09:00→20:16)
--- NOTE | 2018-03-06 15:07 | P.PNPSY ---
Subjective Remarks: Patient was seen and case discussed with nursing. Patient continues with various personality traits during the interview. He continues to blame social stressors for his behavior. He says he has passive suicidal ideation denies any plan or intent. Says he feels hopeless towards the future if he cannot stabilize his housing and work. He is compliant with his medications. Social with others and has not had any outbursts Mental Status Examination Appearance: Appropriate Consciousness: Alert Orientation: x4 Motor Activity: Normal gait Speech: Unremarkable Language: Adequate Fund of Knowledge: Adequate Attention and Concentration: Adequate Memory: Unremarkable Mood: Irritable Affect: Other (Slight decreased range and intensity) Thought Process & Associations: Intact Thought Content: Appropriate Hallucination Type: None Delusion Type: None Suicidal Ideation: Yes Suicidal Plan: Yes Suicidal Intention: Yes Homicidal Ideation: No Homicidal Plan: No Homicidal Intention: No Insight: Poor Judgment: Poor Assessment and Plan - Assessment (1) Adjustment disorder with mixed disturbance of emotions and conduct Code(s): F43.25 - Adjustment disorder with mixed disturbance of emotions and conduct Status: Acute - Plan Plan: Continue current treatment plan Justification for Continued Inpatient Stay: Patient would decompensate in a less restrictive setting
[2018-03-07] MEDS: Senna/Docusate Sodium 8.6/50 MG Tablet PO SCH ×2 (09:38→21:21)
--- NOTE | 2018-03-07 15:54 | P.PNPSY ---
Subjective Remarks: Patient was seen and case discussed with nursing. Nursing continues to provide examples of manipulative behavior. Today, patient says he is no longer suicidal but depressed and has little hope for the future. His main concern is his chronic homelessness and fear of not getting medications. He has not had any outbursts. He is polite during the interview. Mental Status Examination Appearance: Appropriate Consciousness: Alert Orientation: x4 Motor Activity: Normal gait Speech: Unremarkable Language: Adequate Fund of Knowledge: Adequate Attention and Concentration: Adequate Memory: Unremarkable Mood: Appropriate Affect: Other (Slight decreased range and intensity) Thought Process & Associations: Intact Thought Content: Appropriate Hallucination Type: None Delusion Type: None Suicidal Ideation: No Suicidal Plan: No Suicidal Intention: No Homicidal Ideation: No Homicidal Plan: No Homicidal Intention: No Insight: Poor Judgment: Poor Assessment and Plan - Assessment (1) Adjustment disorder with mixed disturbance of emotions and conduct Code(s): F43.25 - Adjustment disorder with mixed disturbance of emotions and conduct Status: Acute - Plan Plan: Continue current treatment plan Justification for Continued Inpatient Stay: Patient would decompensate in a less restrictive setting
[2018-03-08] MEDS: Senna/Docusate Sodium 8.6/50 MG Tablet PO SCH ×2 (08:34→20:16)
--- NOTE | 2018-03-08 16:06 | P.DSPSY ---
Psychiatry Discharge Summary Inpatient Psychiatric care?: Yes Advance Directives: No Mental Health Advance Directive: No Health Care Proxy: No - Admission Admission Date: March 03, 2018 09:43 - Admission Diagnosis (1) Adjustment disorder with mixed disturbance of emotions and conduct Code(s): F43.25 - Adjustment disorder with mixed disturbance of emotions and conduct Brief History: The patient is a 28-year-old man, homeless, , unemployed, with a self-reported psychiatric history of bipolar disorder, borderline personality disorder, he reports 3 previous psychiatric hospitalizations, multiple suicidal attempts, history of self cutting behavior without SI, poor impulse control, noncompliant with medications, aggressive behavior, multiple incarcerations, who was just discharged today by Dr. Gandhi with clear recommendations, but presented hour late presents under Dey act. The patient reports that he took 20-25 tablets of 500 mg Depakote at approximately 2 PM yesterday and effort to kill himself. His Depakote level initially was 311. Apparently after the patient was discharged from psychiatry he overdosed with the Depakote and went up to [address] [facility] and from there called 911 stating that he wanted to kill himself. EMR was reviewed. Case was discussed with ER staff. I find a patient that is a sleeping, but arousable. He wake up and he states that he is feeling fine but he does not open his eyes, when I asked him to open his eyes so he can have a better conversation with me and he can recognize his psychiatrist, his answer is "I am not opening my fucking eyes and I do not need to see a motherf.... psychiatrist". The patient is visibly quite irritable, oppositional and avoidant. As I try to engage in the conversation and asking the reason he overdose and he came back to the hospital, he says that he has been suicidal for about 2 years now, he is tired of his life and tired of being homeless. He reports that yesterday when he was discharged "I felt that I was not ready to be homeless again and I just tried to commit suicide". The patient refused to elaborate about feelings and emotions behind his suicidal behavior. As I continued asking questions to the patient's continue to be avoidant and using several profanities and disrespectful statements. He is fully oriented x3, denies the use of illegal drugs and alcohol. Tobacco Use In Past 30 Days: Yes How Often Do You Have a Drink Containing Alcohol: Monthly or less Hospital Course: Patient behavior improved markedly through his stay he showed compliance with the medication. He continued vague suicidality. However he was willing to her participated in discussions with counselor Harvinder an attempt to find an appropriate placement sober living facility your long-term facility. He suggested we call his primary facility in [place] where he stated he did quite well until he had some type of seizure activity and had to be hospitalized. Lean and the patient called [place] they are willing to have him come to the facility for placement and treatment. Patient is quite excited about this he states this is given him a new outlook on life he denies suicidality at this time is excited about being transferred there. Patient to be discharged tomorrow morning early to catch an early bus to go to [place] he will be given some meals through subsist him on the way there. The B no Rx written by mo - Discharge Discharge Date: 03/09/18 - Discharge Diagnosis (1) Adjustment disorder with mixed disturbance of emotions and conduct Code(s): F43.25 - Adjustment disorder with mixed disturbance of emotions and conduct Status: Acute Discharge Disposition: Group type home in [place] - Discharge Instructions Discharge Diet: Regular Diet Activities You Can Perform: Regular- No Restrictions - Discharge Time > 30 minutes Mental Status Examination Appearance: Appropriate Consciousness: Alert Orientation: x4 Motor Activity: Normal gait Speech: Unremarkable Language: Adequate Fund of Knowledge: Adequate Attention and Concentration: Adequate Memory: Unremarkable Mood: Appropriate Affect: Other (Slight decreased range and intensity) Thought Process & Associations: Intact Thought Content: Appropriate Hallucination Type: None Delusion Type: None Suicidal Ideation: No Suicidal Plan: No Suicidal Intention: No Homicidal Ideation: No Homicidal Plan: No Homicidal Intention: No Insight: Poor Judgment: Poor Discharge/Advance Care Plan - Results Vital Signs: Last Vital Signs Temp 98.3 F 03/07/18 18:06 Pulse 88 03/07/18 18:06 Resp 18 03/07/18 18:06 BP 136/85 03/07/18 18:06 Pulse Ox 96 03/07/18 18:06 Lab Results: Laboratory Results Hemoglobin A1c 5.0 % (4.3-6.0) 03/05/18 10:17 Triglycerides 115 mg/dL (42-150) 03/05/18 10:17 Cholesterol 85 mg/dL (120-200) L 03/05/18 10:17 LDL Cholesterol, Calc 30 mg/dL (0-99) 03/05/18 10:17 HDL Cholesterol 32.3 mg/dL (40.0-60.0) L 03/05/18 10:17 Valproic Acid 261 mcg/mL (50-100) H* 03/02/18 23:45 Summary of Procedures: None done Pending Results: None - Medications Number of antipsychotic medications at discharge: 0 - Discharge Care Plan Goals to Promote Your Health: * To prevent worsening of your condition and complications * To maintain your health at the optimal level Directions to Meet Your Goals: Take your medications as prescribed Follow your dietary instruction Follow activity as directed Keep your appointments as scheduled Take your immunizations and boosters as scheduled If your symptoms worsen call your PCP, if no PCP go to Urgent Care Center or Emergency Room For 16/03 questions related to your inpatient stay or results of tests pending at discharge, please contact Dr. Dipak Gandhi MD at Smoking is Dangerous to Your Health. Avoid second hand smoking
== END 2018-03-09 06:19 | disposition home or self-care (01) ==
LOC: NEDAMB 19:27 → NEDA 03-03 09:43 → H270 03-03 11:12 → UNDODISIN 03-03 11:15 → H270 03-03 21:08
PROVIDERS: ADMIT Psychiatry & Neurology Psychiatry; ATTEND Psychiatry & Neurology Psychiatry
DX: F43.25 Adjustment disorder with mixed disturbance of emotions and conduct; R56.9 Unspecified convulsions; Y92.238 Other place in hospital as the place of occurrence of the external cause; F17.210 Nicotine dependence, cigarettes, uncomplicated; Z59.0 Homelessness; Z78.1 Physical restraint status; T42.6X2A Poisoning by other antiepileptic and sedative-hypnotic drugs, intentional self-harm, initial encounter